=== PATIENT | female | born 1955 | race Caucasian/White ===

== ENCOUNTER → 2017-08-22 15:34 | Outpatient (CLI) | payer OTHER, MEDICAID, SELFPAY | PROVIDERS: PCP Internal Medicine; Visit Provider Internal Medicine | DX: Z53.9 Procedure and treatment not carried out, unspecified reason (principal) ==

== ENCOUNTER → 2017-08-22 16:14 | Outpatient (CLI) | payer OTHER, MEDICAID, SELFPAY | PROVIDERS: PCP Internal Medicine; Visit Provider Internal Medicine | DX: R19.7 Diarrhea, unspecified (principal) ==

== ENCOUNTER → 2018-03-22 12:05 | Outpatient (CLI) | payer OTHER, MEDICAID, SELFPAY ==
--- NOTE | 2018-03-22 | DI.CT.S_ITS ---
PROCEDURE: CT CHEST W CON INDICATIONS: Cutaneous abscess of chest wall TECHNIQUE: After the administration of intravenous contrast, 5 mm thick sections acquired from the pulmonary apices to the posterior costophrenic angles. 7 mm thick coronal and sagittal MIP reformats were acquired. For radiation dose reduction, the following was used: automated exposure control, adjustment of mA and/or kV according to patient size. COMPARISON: None. FINDINGS: Image quality: Excellent. Lungs and pleura: There is an irregular cavitary lesion in the right upper lobe measuring 2.3 x 3.5 cm.. No pleural effusions or pneumothorax. Central and peripheral airways are patent and normal in caliber. Mediastinum: Heart size is normal. No pericardial effusion. No mediastinal or hilar adenopathy by size criteria. Thoracic aorta and central pulmonary arteries are normal in size. Esophagus is normal in caliber. No hiatal hernia. Bones and chest wall: There is mild stranding in the right lateral chest wall. A mildly prominent prominent right axillary lymph node measures 8 mm. No suspicious bony lesions. No vertebral body compression fractures. No axillary or supraclavicular adenopathy by size criteria. Thyroid gland is normal. Abdomen: Visualized upper abdominal solid organs appear normal. Upper abdominal bowel loops are normal in caliber. IMPRESSION: 1. A 2.3 x 2.5 cm irregular cavitary lesion in the right upper lobe, most likely infectious in etiology. Recommend followup CT to ensure resolution. 2. Mild soft tissue stranding in the right lateral chest wall and slightly prominent right axillary lymph nodes, most likely reactive. Dictated by: Onelia Mathis M.D. on 03/22/2018 at 15:00 Transcribed by: PATRICIA on 03/22/2018 at 15:12 Approved by: Onelia Mathis M.D. on 03/22/2018 at 18:12
[2018-03-22 13:37] LABS: Estimated Glomerular Filt Rate > 60.0 mL/min (>60)
== END ==
PROVIDERS: PCP Internal Medicine; Visit Provider Internal Medicine
DX: L02.213 Cutaneous abscess of chest wall (principal); R59.0 Localized enlarged lymph nodes; Z79.899 Other long term (current) drug therapy
CPT/HCPCS: 36415; 71260; 82565; Q9967

== ENCOUNTER 2018-05-22 07:12 | Day surgery (SDC) | payer OTHER, MEDICAID, SELFPAY ==
--- NOTE | 2018-05-22 | PATH_ITS ---
[facility] Accession Number: [id number] . 01 Material submitted: . PROXIMAL STOMACH BIOPSY . 02 Diagnosis: Proximal Stomach, Biopsy: Gastric mucosa with minimal chronic inflammation. No evidence of Helicobacter organisms on H/E stain. Negative for intestinal metaplasia, dysplasia or malignancy. MRV/05/23/2018 . 02 Electronically signed: . Ranjan Ventura MD, PhD, Pathologist NPI- [id number] . 01 Gross description: . PROXIMAL STOMACH BIOPSY: Received in formalin is 1 fragment(s) of waite, soft tissue measuring 0.1 x 0.1 x 0.1 cm which is entirely submitted and submitted entirely in 1 cassette(s) /DMC /DMC . 02 Pathologist provided ICD-10: K29.70 . 02 CPT . 495696 Performed at: 01 [facility] [address] [id number] MD Bro Vail MD Phone: [phone] Performed at: 02 [facility] [address] [place], [place] [id number] MD Pema Licea MD Phone: [phone]
[2018-05-22 07:45] VITALS: BP 115/68; PULSE 58; RESP 16; TEMP 36.6; O2SAT 98; BMI 18.8
[2018-05-22] MEDS: SODIUM CHLORIDE 0.9% 1,000 ML 200 ML IV (08:00)
[2018-05-22 08:21] VITALS: BMI 18.8
--- NOTE | 2018-05-22 08:56 | PM.HP.1 ---
History of Present Illness Date Patient Seen: 05/22/18 Time Patient Seen: 08:56 Chief complaint: [id number] Narrative: Patient is a woman who is been having dysphagia. As part of her evaluation she is here for an EGD. She is also due for colonoscopy and called me back after she left the office in order to schedule that. That was added to today's procedure. Patient History Medical History Multiple sclerosis (Chronic 07/31/85) Asthma (Chronic 1972) Allergic rhinitis (Chronic 1966) Incontinence of urine in female (Chronic 2007) Herpes simplex virus (HSV) infection (Chronic 1971) Osteoporosis (Chronic 02/16/11) Constipation (Chronic 07/04/13) Atrophic vaginitis (Chronic 02/26/14) Eosinophilic esophagitis (Chronic 06/14/16) Dysphagia causing pulmonary aspiration with swallowing (Acute) GERD (gastroesophageal reflux disease) (Acute) Hip fracture, right (Acute) Chronic back pain (Chronic 1977) Scoliosis (Chronic 05/2013) Chicken pox (Resolved 1955) Hip fracture, right (Resolved ~05/29/13) Measles (Resolved 1955) Mumps (Resolved 1955) Pancreatitis (Resolved 2003) Surgical History Anesthesia (Resolved) History of hip replacement (Resolved 05/29/13) Status post appendectomy (Resolved 02/1972) Status post delivery (Resolved 01/31/87) Status post endometrial ablation (Resolved 09/2001) Status post tubal ligation (Resolved 03/1991) Family History Child Age: 37 Hypertension Child Age: 31 Asthma Child Age: 28 Hypertension Gout Father Family history of COPD (chronic obstructive pulmonary disease) Asthma Peripheral neuropathy Mother Age: 90 Melanoma Osteoporosis Grandmother Family history of breast cancer Sister Age: 68 Family history of schizophrenia Former smoker Mental problems Sister Age: 67 Smoker Hypertension Social History household members: none Smoking Status: Never smoker Family & Social History Family History Child Age: 37 Hypertension Child Age: 31 Asthma Child Age: 28 Hypertension Gout Father Family history of COPD (chronic obstructive pulmonary disease) Asthma Peripheral neuropathy Mother Age: 90 Melanoma Osteoporosis Grandmother Family history of breast cancer Sister Age: 68 Family history of schizophrenia Former smoker Mental problems Sister Age: 67 Smoker Hypertension Social History: household members none Tobacco & Substance use: Smoking Status Never smoker Meds Home Medications Medication Instructions Recorded Confirmed Type oxycodone-acetaminophen [Percocet] 1 tab PO BID #0 06/14/16 05/22/18 History gabapentin [Neurontin] 800 mg PO TID #0 08/11/16 05/22/18 History tizanidine [Zanaflex] 4 mg PO TIDP PRN #0 08/11/16 05/22/18 History cetirizine 10 mg tablet 10 mg PO QDAY PRN #90 tab 06/29/17 05/22/18 Rx interferon beta-1a (albumin) 30 30 mcg IM WEEKLY 28 Days each 06/29/17 05/22/18 History mcg intramuscular kit multivitamin,[id number] 1 tab PO DAILY 04/17/18 05/22/18 History tablet acyclovir 400 mg PO TID PRN 05/22/18 05/22/18 History albuterol sulfate [Ventolin HFA] 2 puff INHALATION QID PRN 05/22/18 05/22/18 History iron 05/22/18 History magnesium PRN 05/22/18 History potassium 05/22/18 History Allergies Allergy/AdvReac Type Severity Reaction Status Date / Time levofloxacin [LEVOFLOXACIN] Allergy Severe Trouble Verified 05/22/18 07:54 breathing, G.I. DISTRESS, headache, Rash Penicillins [PENICILLINS] Allergy Severe DYSPNEA,ITCHING, Verified 05/22/18 07:54 Rash on entire body Sulfa (Sulfonamide Allergy Unknown ITCHINESS Verified 04/17/18 12:57 Antibiotics) [SULFA (SULFONAMIDE ANTIBIOTICS)] fluticasone [FLUTICASONE] AdvReac Intermediate headache, Verified 05/22/18 07:54 feels like :blow torch in nose Review of Systems Review of Systems Patient has multiple sclerosis. She has severe scoliosis of her spine that is worsening with time. No cardiac disease. No black or bloody bowel movements. No seizures. Exam Vital Signs (past 8 hours): - 05/22/18 07:45 Temperature 97.8 F Pulse Rate 58 L Respiratory Rate 16 Blood Pressure 115/68 Pulse Oximetry 98 Oxygen Delivery Method Room Air Narrative Exam Narrative: Little blunted affect. Lungs are clear no rales or rhonchi. Heart regular rate and rhythm without murmur gallop. Abdomen is scaphoid soft nontender without mass. Alert and oriented x3. Assessment & Plan Assessment & Plan narrative: Patient with dysphagia due for screening colonoscopy. I have discussed the GDA and colonoscopy with her. I have discussed the procedure and the rationale with the patient including risks of bleeding, perforation which would necessitate a major operation, failure to find remove all lesions and the potential to tattoo. They appeared to understand and wished to proceed. We may or may not perform dilatation depending on the findings.
[2018-05-22] MEDS: TETRACAINE/BENZOCAINE/BUTAMBEN (CETACAINE) BOTTLE 1 SPRAY TOP (09:07)
[2018-05-22] MEDS: LIDOCAINE 4% SOLN 50 ML 20 ML TOP (09:08)
[2018-05-22] MEDS: MIDAZOLAM 5 MG/5 ML VIAL IV (09:09)
[2018-05-22] MEDS: fentaNYL 250 MCG/5 ML INJ IV (09:09)
--- NOTE | 2018-05-22 09:42 | PM.OP.ENDO ---
Operative Date/Time/Diagnoses Date of procedure: 05/22/18 Time of procedure: 09:42 Pre-op diagnosis: Dysphagia. Screening colonoscopy. Last exam 10 years ago. Post-op diagnosis: same (No anatomical cause of dysphagia seen. Small hard lesion proximal stomach. Attempted biopsy. Doubt neoplasm.) Procedure & Clinicians Study performed: EGD with cold biopsy. colonoscopy. Same procedure as scheduled: Yes Indications: Screening for colon cancer. Dysphagia. Surgeon: Blake Gonzalez Procedure Notes SCOAP/Timeout: Performed Procedure in detail: The patient had topical anesthetic applied to oropharynx. She was placed in left lateral decubitus position and underwent IV sedation directed by the surgeon consisting of fentanyl and Versed. A bite block was inserted and the scope was advanced through it into the esophagus. The esophagus was unremarkable. GE junction was noted at 40 cm from the incisors. The stomach insufflated well. There were no lesions seen in the body, antrum or at the incisura. The pyloric channel was patent. The duodenum was unremarkable to the 4th part. The scope was brought back into the stomach and retroflexed. The proximal stomach had a small raised nodule in it under a cm in size. It appeared to be submucosal and hard. I attempted biopsies of the lesion. May be a calcified process. The scope was straightened and brought out through the esophagus again. No lesions were seen. The scope was removed and the patient tolerated the procedure well. no strictures seen in the esophagus. The patient was placed in the left lateral decubitus position and underwent IV sedation directed by the surgeon consisting of fentanyl and Versed. Digital exam was unremarkable. The scope was inserted and advanced through the rectum into the sigmoid, descending, transverse, and ascending colon. Pressure was applied and a stiffener inserted and we made our way into the cecum.. The cecum was reached identified by the ileocecal valve and the appendiceal opening. The scope was gradually brought out. No Polyps were found. The scope ultimately was retroflexed in the rectum. The appearance was normal except for scarring on old hemorrhoidal disease. No active inflammation present.. The scope was removed and the patient tolerated the procedure well Scope withdrawal time: 6 minutes Sedation minutes: 35 Findings: other findings (Small gastric nodule. Suspect benign calcium deposit) Specimen(s): other (Gastric biopsies) Complications: none Recommendations: Colonscopy in 10 years Follow up: as needed Disposition: PACU
[2018-05-22 09:45] VITALS: BP 110/59; PULSE 68; RESP 15; TEMP 36.9; O2SAT 97
[2018-05-22 09:50] VITALS: BP 102/57; PULSE 64; RESP 18; TEMP 36.9; O2SAT 98
--- NOTE | 2018-05-22 09:51 | SUR.PHASEI ---
iv fluids are not documented in MAR. pt arrived to PACU with 800 cc of NS infused
[2018-05-22 09:55] VITALS: BP 104/59; PULSE 63; RESP 15; TEMP 36.9; O2SAT 99
[2018-05-22 10:04] VITALS: BP 100/64; PULSE 70; RESP 14; TEMP 36.9; O2SAT 98
--- NOTE | 2018-05-22 10:15 | PM.PREOP ---
Pre-operative Note Interval Note History & Physical reviewed/Exam performed by Physician: Yes Changes to H&P: No H&P completed within 30 days and has changed as indicated here:: History and physical performed prior to moving the patient into the room. ASA Class (for procedural sedation): III
--- NOTE | 2018-05-22 11:43 | SUR.PHASEII ---
1004 Stretcher down and locked, call light within reach. HOB elevated, awaiting transportation. Valuables, backpack, and clothing bag to bedside. Pt. texting friend for ride, says that she has to go to [place] first. ~1020 Lunch ordered, fluids given (declined earlier). ~1045 Lunch arrived. Patient comfortable, states that she doesn't want to stand until she feels stable. 1105 Continues eating, no complaints of discomfort. 1119 Patient discharged w/friend. Instructions given by Escobar Purvis RN and discharged while this Rn was out of the department. Reported that she did well and had all personal belongings.
== END 2018-05-22 11:19 | disposition home or self-care (01) ==
PROVIDERS: PCP Internal Medicine; Visit Provider Specialist
PROC: 0DJ08ZZ Inspection of Upper Intestinal Tract, Via Natural or Artificial Opening Endoscopic (ICD-10-PCS; CPT 43235; principal; 2018-05-22 08:45)
PROC: 0DJD8ZZ Inspection of Lower Intestinal Tract, Via Natural or Artificial Opening Endoscopic (ICD-10-PCS; CPT 45378; 2018-05-22 08:45)
DX: Z12.11 Encounter for screening for malignant neoplasm of colon (principal); R13.10 Dysphagia, unspecified; G35 Multiple sclerosis
CPT/HCPCS: 43239; G0121; 99152; 99153; J2250; J3010

== ENCOUNTER → 2020-03-06 09:37 | Outpatient (CLI) | payer OTHER, MEDICAID, SELFPAY ==
[2020-03-06 12:02] LABS: COVID19 -Nasal RAPID Negative (Negative)
== END ==
PROVIDERS: PCP Internal Medicine; Visit Provider Specialist
DX: Z01.812 Encounter for preprocedural laboratory examination (principal); Z20.822 Contact with and (suspected) exposure to COVID-19
CPT/HCPCS: 87635; C9803

== ENCOUNTER 2020-03-09 13:28 | Day surgery (SDC) | payer OTHER, MEDICAID, SELFPAY ==
[2020-03-09] VITALS (8 sets, daily range): BP systolic 95–129; BP diastolic 57–72; PULSE 61–97; RESP 8–16; TEMP 36.2–36.4; O2SAT 95–99; BMI 21.6
--- NOTE | 2020-03-09 | PATH_ITS ---
[facility] Accession Number: [id number] . 01 Material submitted: . gallbladder - GALLBLADDER . 02 Diagnosis: Gallbladder, Cholecystectomy: Gallbladder with cholesterolosis and cholelithiasis. MRV 03/12/2020 1420 Local . 02 Electronically signed: . Crystal Arriola MD, Pathologist NPI- [id number] . 01 Gross description: . The specimen is received in formalin, labeled gallbladder and consists of an 8.0 x 4.0 x 3.8 cm intact gallbladder with a 0.3 cm in diameter cystic duct. The serosa is waite-green and smooth. Opening reveals green viscous bile with a 0.5 x 0.4 x 0.3 cm waite-green bosselated cholelith. The mucosa is waite-green and velvety, and the wall thickness measures 0.1 cm. Brim Stretcher sections are submitted, to include the en face cystic duct margin in cassette A1. ([id number]) /[facility] 03/11/2020 1531 Local . 02 Pathologist provided ICD-10: K80.70 . 02 CPT . 776064 Performed at: 01 [facility] [address], [place], [place] [id number] MD Bro Vail MD Phone: [phone] Performed at: 02 [facility] [address] [place], [place] [id number] MD Pema Licea MD Phone: [phone]
[2020-03-09] MEDS: LACTATED RINGERS 1,000 ML 42 ML IV ×2 (14:26→16:24)
--- NOTE | 2020-03-09 14:39 | PM.PREOP ---
Pre-operative Note COVID-19 COVID-19 status: Negative Result date/Date tested (Pos, Neg/Pending): 03/06/20 Interval Note History & Physical reviewed/Exam performed by Physician: Yes Changes to H&P: No H&P completed within 30 days and has changed as indicated here:: Reviewed the risks again with the patient. Explained that internal injury could result in major operation. Talked to her about alternative port site placement.
[2020-03-09] MEDS: GENTAMICIN 320 MG in SODIUM CHLORIDE 0.9% 100 ML 108 ML IV (14:58)
[2020-03-09] MEDS: VANCOMYCIN 1,000 MG/200 ML PIGGYBACK 200 MG IV (15:00)
--- NOTE | 2020-03-09 15:26 | SUR.OPER ---
Supine on padded OR bed, head on pillow, arms secured on padded arm boards at <90 degrees abduction, legs uncrossed, safety belt at thigh, tape over blanket over lower legs.
[2020-03-09] MEDS: BUPIVACAINE 0.5% (PF) VIAL 30 ML INJ (15:31)
--- NOTE | 2020-03-09 16:23 | PM.OP.1 ---
Operative Date/Time/Diagnoses Date of procedure: 03/09/20 Time of procedure: 16:23 Pre-op diagnosis: Cholelithiasis with cholecystitis Post-op diagnosis: same Procedure & Clinicians Procedure: Laparoscopic cholecystectomy Same procedure as scheduled: Yes Indications: Right upper quadrant pain and abnormal ultrasound Surgeon: Blake Gonzalez Click Yes if Unassisted: Yes Anesthesia Type: General Operative Notes Findings: Gallbladder with extensive adhesions to its surface. Closure Type: primary Specimen(s): other Prosthetic devices, grafts, tissues, transplants, or devices: None Estimated Blood Loss (mL): 5 Procedure in detail: The patient was placed supine on the operating room table and underwent general endotracheal anesthesia. The patient was prepped and draped in the usual fashion. Local anesthetic was infiltrated near the umbilicus and incision made in her old scar and carried down through fascia into the peritoneal cavity. Stay sutures of 0 Vicryl were placed in the fascia. A 12 mm port was placed. The abdomen was insufflated. The patient was repositioned. Local anesthetic was infiltrated in 3 areas under the right costal margin and 3D incisions made followed by placing 3 5 mm ports under direct laparoscopic camera vision internally. The gallbladder was grasped and elevated. Dissection was begun at the top of the gallbladder where adhesions of omentum which were fairly flimsy were taken down. This was done with blunt and sharp dissection. I exposed the end of the gallbladder and the cystic duct and vascular structures in the region. I placed 3 clips across 3 structures 1 of which was probably just thickened inflamed tissue but could have contained a small artery. These 3 structures were divided leaving 2 in the patient. One was clearly pulsatile and the other was clearly the cystic duct. I was not anywhere near the region of the common bowel duct where these clips were applied. There was 1 other structure that could have been a small venous structure that I placed a clip on and divided leaving that in the patient.. The gallbladder was then dissected from its bed in the liver using cautery. There was essentially no bleeding or spillage. It was detached and removed through the umbilical port. The ports were all removed. The port sites were all irrigated. The stay sutures at the umbilicus were elevated. A 2 0 PDS suture was placed between them. The Vicryl and PDS sutures were then tied. After irrigating, The skin in all areas was closed with interrupted 4 0 Vicryl subcuticular stitches. Steri-Strips and Mastisol were applied. Band-Aids were placed and the patient was awakened, extubated and taken to the recovery area in good condition. Complications: none Post-operative Condition: stable Disposition: PACU
[2020-03-09] MEDS: OXYCODONE IR 5 MG TABLET PO (17:02)
--- NOTE | 2020-03-09 17:50 | SUR.PHASEII ---
Pt met criteria for discharge: VSS, denied nausea, able to drink fluids, voided per toilet x 1, stated that pain was tolerable. Discharge instructions discussed with pt, all questions answered. Transported via W/C to private vehicle.
== END 2020-03-09 17:43 | disposition home or self-care (01) ==
PROVIDERS: PCP Internal Medicine; Referring Provider Specialist; Visit Provider Specialist
PROC: 0FT44ZZ Resection of Gallbladder, Percutaneous Endoscopic Approach (ICD-10-PCS; CPT 47562; principal; 2020-03-09 13:45)
DX: K80.10 Calculus of gallbladder with chronic cholecystitis without obstruction (principal); K82.8 Other specified diseases of gallbladder; J45.909 Unspecified asthma, uncomplicated; G35 Multiple sclerosis
CPT/HCPCS: 47562; J1100; J2405; J2704; J3010